=== PATIENT | male | born 2000 | race Caucasian/White ===

== ENCOUNTER 2020-08-04 23:57 | Emergency (ER) | payer OTHER ==
[~2020-08-04] VITALS: Ht 154.9 cm; Wt 49.9 kg
[2020-08-04 23:59] VITALS: BP 149/106
[2020-08-05] MEDS ORDERED: SEROQUEL 100 M100 M1 PO (00:10)
[2020-08-05] MEDS ORDERED: REMERON15 M2 PO (00:10)
[2020-08-05 00:58] LABS: HEMATOCRIT 41.4 % (42.0-52.0); HEMOGLOBIN 14.5 gm/dL (14.0-18.0); MCH 33.2 pg (26.0-34.0); MCHC 35.1 g/dL (28.0-37.0); MCV 94.5 fL (80.0-100.0); RBC 4.38 mil/uL (4.50-6.00); RDW 13.7 % (10.5-14.5); WBC 9.1 thou/uL (4.0-11.0)
[2020-08-05 01:00] LABS: URINE BILIRUBIN NEGATIVE (Negative); URINE BLOOD NEGATIVE (Negative); URINE CLARITY CLEAR; URINE COLOR YELLOW; URINE GLUCOSE-RANDOM* NEGATIVE (Negative); URINE KETONES NEGATIVE (Negative); URINE LEUKOCYTES-REFLEX NEGATIVE (Negative); URINE NITRITE-REFLEX NEGATIVE (Negative); URINE PROTEIN (DIPSTICK) NEGATIVE (Negative)
[2020-08-05 01:01] LABS: ANION GAP 10 mmol/L (7-16); BUN 16 mg/dL (7-18); CALCIUM 9.4 mg/dL (8.5-10.1); CHLORIDE 100 mmol/L (98-107); CO2 29 mmol/L (21-32); GLUCOSE 117 mg/dL (74-106); POTASSIUM 4.1 mmol/L (3.5-5.1); SALICYLATE < 2.8 mg/dL (2.8-20.0); SODIUM 139 mmol/L (136-145)
[2020-08-05 01:08] LABS: AMP/METHAMP Negative (Negative); BARBITURATES Negative (Negative); BENZODIAZEPINES Negative (Negative); COCAINE Negative (Negative); METHADONE Negative (Negative); OPIATES Negative (Negative); PCP Negative (Negative)
--- NOTE | 2020-08-05 02:02 | NUR ---
INFORMATION SENT TO [facility]
--- NOTE | 2020-08-05 03:33 | NUR ---
DISCUSSED WITH KENNY AT [facility] REGARDING POSITIVE PCR TEST FOR COVID 19. REPORTED SHE WOULD HAVE TO DISCUSS WITH PHYSICIANS AT [facility] RELATED TO PAST POSTIVE COVID TEST.
--- NOTE | 2020-08-05 07:55 | NUR ---
SPOKE TO PTS FATHER ASKING HOW HE WAS DOING AND IF HE COULD COME VISIT. PER DOCTOR IT IS OKAY AND PT AGREEABLE TO HIS DAD COMING TOO
--- NOTE | 2020-08-05 14:17 | NUR ---
MOTHER LEIGHTON VERGARA ([phone]) CALLED ASKING IF SHE COULD SEE PT. ERP AND PT AGREEABLE TO VISITATION.
--- NOTE | 2020-08-05 17:03 | NUR ---
MOTHER ASKING QUESTIONS ABOUT PLACEMENT, WASHCLOTH FOLDER MADE HER AWARE THAT PLACEMENT HAS BEEN HALTED AT THIS TIME DUE TO +VE COVID TEST RESULT AND PT IS BEING ADM INPATIENT. PT AND MOTHER REPORT NOT WANTING TO BE IN THIS HOSPITAL BECAUSE HE WOULDN'T GET THE "EXACT" CARE HE NEEDS SUCH GROUP ACTIVITIES HE WILL REMAIN 1:1 SI OBSERVATION AND ISOLATION. MOTHER FURTHER STATED SHE WOULD LIKE TO TAKE HIM HOME OF WHICH WASHCLOTH FOLDER EXPLAINED PT NEEDS TO BE REASSESSED BY A PSYCH DRILL RUNNER HELPER AFTER 24HRS FROM PREVIOUS ASSESSMENT PRIOR TO DISCHARGE. WHILE HAVING THIS CONVERSTAION WITH MOTHER, PT VOICES "I HATE BEING IN SECLUSION, THIS IS MAKING ME FEEL WORSE, I KEEP HEARING VOICES TO HURT MYSELF MORE AND MORE" "I WILL BREAK OUT OF THIS HOSPITAL IF I'M NOT ALLOWED TO GO HOME". PT RETURNED BACK TO A CALM STATE OF MIND SHORTLY, TEARFUL. ERP MADE AWARE OF SITUATION AND AT BEDSIDE DISCUSSING WITH PT AND MOTHER.
[2020-08-06 13:42] VITALS: BP 96/50
[2020-08-06 13:50] VITALS: BP 102/55
== END 2020-08-06 13:50 | disposition home or self-care (01) ==
LOC: ER 23:57 → EROBS 08-05 12:22 → ER 08-05 12:22
PROVIDERS: Emergency Medicine
DX: R45.851 Suicidal ideations (principal); R45.850 Homicidal ideations; F32.9 Major depressive disorder, single episode, unspecified; Z20.828 Contact with and (suspected) exposure to other viral communicable diseases; F17.210 Nicotine dependence, cigarettes, uncomplicated; Z79.899 Other long term (current) drug therapy